=== PATIENT | female | born 1995 | race Caucasian/White ===

== ENCOUNTER → 2018-09-05 | Outpatient (CLI) | payer OTHER ==
--- NOTE | 2018-09-06 10:09 | MRI ---
MRI left ankle without contrast INDICATION: Ankle pain recurrent dislocation Comparison; none TECHNIQUE: Noncontrast MR imaging left ankle FINDINGS: No osteochondral lesion talar dome. No advanced ankle arthrosis. Mortise and syndesmosis are congruent. Ill-defined deep deltoid suggesting previous tear. Mild cystic change in the medial malleolus. No disruption of the regional tendons. Ill-defined anterior talofibular ligament from prior ankle sprain. Achilles and plantar aponeurosis are intact. Small ankle and subtalar effusions. IMPRESSION: Evidence of remote anterior talofibular ligament tear/ankle sprain Evidence of remote partial tear of the deep deltoid No osteochondral lesion acute fracture or coalition No major regional tendon disruption. Electronically signed by: Chay Tuttle MD 09/06/2018 10:07 AM CDT
== END ==
LOC: MRI 09:02
PROVIDERS: ATTEND Orthopaedic Surgery
DX: M24.472 Recurrent dislocation, left ankle (principal); S93.422A Sprain of deltoid ligament of left ankle, initial encounter